=== PATIENT | male | born 1950 | race Caucasian/White ===

== ENCOUNTER 2023-02-25 09:35 | Emergency (ER) | payer BC, MEDICARE, OTHER ==
[~2023-02-25] VITALS: Ht 180.3 cm; Wt 72.0 kg
[~2023-02-25 09:35] MED LIST: NO HOME MEDS; OXYC-149 PO
[2023-02-25 09:46] VITALS: BP 152/105; PULSE 108; O2SAT 96
[2023-02-25] MEDS ORDERED: ketorolac trometh inj. 60 MG/2 ML VIAL IM ONE (11:10)
[2023-02-25] MEDS ORDERED: TRAM50TA2 PO (11:14)
[2023-02-25] MEDS ORDERED: IBUP-1986 PO (11:14)
[2023-02-25 11:21] VITALS: RESP 17
== END 2023-02-25 17:59 | disposition home or self-care (01) ==
LOC: ER 09:35
DX: S43.101A Unspecified dislocation of right acromioclavicular joint, initial encounter (principal); X58.XXXA Exposure to other specified factors, initial encounter; Y93.89 Activity, other specified; Y92.89 Other specified places as the place of occurrence of the external cause; Y99.8 Other external cause status
CPT/HCPCS: 73030; 96372; 99283; J1885; A4565

== ENCOUNTER 2023-12-10 23:10 | Inpatient (IN) | payer BC, OTHER ==
[~2023-12-10] VITALS: Ht 180.3 cm; Wt 85.0 kg
[~2023-12-10 23:10] MED LIST changes: +IBUP-1986 PO
[2023-12-10 23:52] LABS: BASOPHILS # (AUTO) 0.1 X10'3 (0-0.2); BASOPHILS % (AUTO) 1.3 % (0-1); EOSINOPHILS # (AUTO) 0.2 X10'3 (0-0.9); EOSINOPHILS % (AUTO) 3.3 % (0-6); HEMATOCRIT 42.5 % (42.0-52.0); HEMOGLOBIN 14.5 g/dl (14.0-17.9); LYMPHOCYTES # (AUTO) 1.8 X10'3 (1.1-4.8); LYMPHOCYTES % (AUTO) 26.5 % (21-51); MEAN CORPUSCULAR HEMOGLOBIN 29.7 PG (27.0-31.0); MEAN CORPUSCULAR HGB CONC 34.1 g/dL (33.0-36.5); MEAN CORPUSCULAR VOLUME 87.2 FL (78-98); MEAN PLATELET VOLUME 6.9 FL (7.4-10.4); MONOCYTES # (AUTO) 0.5 X10'3 (0-0.9); MONOCYTES % (AUTO) 7.3 % (2-12); NEUTROPHILS # (AUTO) 4.2 X10'3 (1.8-7.7); NEUTROPHILS % (AUTO) 61.6 % (42-75); PLATELET COUNT 281 X10'3 (140-440); RED BLOOD COUNT 4.88 X10'6 (4.70-6.10); RED CELL DISTRIBUTION WIDTH 14.7 % (11.5-14.5); WHITE BLOOD COUNT 6.8 X10'3 (4.5-11.0)
[2023-12-11] VITALS (13 sets, daily range): BP systolic 110–160; BP diastolic 69–95; PULSE 88–96; RESP 14–18; TEMP 98.1; O2SAT 93–99
[2023-12-11 00:06] LABS: ALBUMIN 3.5 G/DL (3.4-5.0); ANION GAP 10 (8-16); BLOOD UREA NITROGEN 17 MG/DL (7-18); BUN/CREATININE RATIO 15.2 (10.0-20.0); CALCIUM 8.6 MG/DL (8.5-10.1); CHLORIDE 105 MMOL/L (99-107); CREATININE 1.12 MG/DL (0.60-1.10); GLUCOSE 102 MG/DL (70-104); POTASSIUM 3.8 MMOL/L (3.5-5.1); PRO BRAIN NATRIURETIC PEPTIDE 1729 PG/ML (0-125); SODIUM 142 MMOL/L (135-145); TOTAL CARBON DIOXIDE 26.8 MMOL/L (24-32); eGFR 65 ML/MIN
[2023-12-11] MEDS: aspirin 325mg tablet PO ONE (01:17)
[2023-12-11] MEDS: heparin 10,000 units/1 ML INJ IV ONE (01:20)
[2023-12-11] MEDS: heparin 25,000 UNIT/250ml bag 250 ML IV PRN (01:21)
[2023-12-11] MEDS: MESSAGE TO NURSING IV ONE ×2 (01:21→09:01)
[2023-12-11 01:41] LABS: APTT 26 SECONDS (22-32); PROTHROMBIN TIME 10.8 SECONDS (9.0-12.0)
[2023-12-11] MEDS ORDERED: magnesium 4gm in 100ml NS 100 ML IV PRN (01:45)
[2023-12-11] MEDS ORDERED: potassium Cl 40MEQ/1/2NS 520ml 520 ML IV PRN (01:45)
[2023-12-11] MEDS ORDERED: acetaminophen 325mg tablet PO PRN (01:45)
[2023-12-11] MEDS ORDERED: morphine 2 MG/ML inj. syringe IV PRN ×2 (01:45)
[2023-12-11] MEDS ORDERED: ondansetron/PF 4mg/2ml inj IV PRN (01:45)
[2023-12-11] MEDS ORDERED: potassium Cl 20 mEq SR tablet PO PRN ×2 (01:45)
[2023-12-11] MEDS ORDERED: magnesium 2GM in 50ml NS 50 ML IV PRN (01:45)
[2023-12-11] MEDS ORDERED: mag hydrox/Alum hydrox/simeth 30ml oral suspension PO PRN (01:45)
[2023-12-11] MEDS ORDERED: magnesium Cl slow-release 64mg tablet PO PRN (01:45)
[2023-12-11] MEDS: lisinopril 10 MG tablet PO ONE (03:34)
[2023-12-11] MEDS: pantoprazole 40mg Tablet.DR PO SCH (07:30)
[2023-12-11 07:59] LABS: HEMOGLOBIN A1C 6.2 % (4.5-6.2)
[2023-12-11] MEDS: docusate sod 100mg capsule PO SCH (08:00)
[2023-12-11] MEDS: K and/or MAG REPLACEMENT MC SCH (08:00)
[2023-12-11] MEDS ORDERED: atorvastatin 20mg tablet PO SCH ×2 (08:00)
[2023-12-11] MEDS: aspirin 81mg, enteric-coated 1 TAB TABLET.DR PO SCH (08:40)
[2023-12-11] MEDS: atorvastatin 20mg tablet PO SCH (08:40)
[2023-12-11] MEDS: lisinopril 10 MG tablet PO SCH (08:41)
[2023-12-11] MEDS: heparin 10,000 units/1 ML INJ IV PRN (08:43)
[2023-12-11] MEDS ORDERED: metoprolol tartrate 1mg/ml inj IV PRN (10:40)
[2023-12-11] MEDS ORDERED: nitroGLYCERIN 0.4mg SUBLingual tab SL PRN (10:40)
[2023-12-11 10:55] LABS: CHOL/HDL RATIO 4.7 (0.00-4.99); CHOLESTEROL 228 MG/DL (0-200); HDL CHOLESTEROL 49 MG/DL (35-60); LDL CHOLESTEROL 162 MG/DL (50-100); POTASSIUM 3.8 MMOL/L (3.5-5.1); THYROID STIMULATING HORMONE 1.88 ulU/ml (0.34-4.50); TRIGLYCERIDES 139 MG/DL (20-135)
[2023-12-11] MEDS: regadenoson 0.4mg/5ml syringe IV PRN (13:25)
[2023-12-11] MEDS: aminophylline 250mg/10ml inj. IV PRN (13:49)
[2023-12-11] MEDS ORDERED: SACU1TAB PO (16:48)
[2023-12-11] MEDS ORDERED: EMPA10TA PO (16:48)
[2023-12-11] MEDS ORDERED: ASPI-1071 PO (16:48)
[2023-12-11] MEDS ORDERED: METO-395 PO (16:48)
[2023-12-11] MEDS ORDERED: NITR0.4T51 SL (16:48)
[2023-12-11] MEDS ORDERED: ATOR20TA66 PO (16:48)
[2023-12-11] MEDS: metoprolol succinate 25mg (24-HOUR) SR. Tablet PO SCH (16:55)
[2023-12-12] MEDS ORDERED: EMPAGLIFLOZIN 10 MG TABLET PO SCH (08:00)
[2023-12-12] MEDS ORDERED: atorvastatin 20mg tablet PO SCH (08:00)
[2023-12-12] MEDS ORDERED: sacubitril/valsartan 24mg-26mg tablet PO SCH (20:00)
== END 2023-12-11 18:23 | DRG 280 ==
LOC: EEVIPCON 23:10 → ER 23:10 → ED HOLD 12-11 01:45
PROVIDERS: ADMIT Surgery; ATTEND Internal Medicine
PROC: 4A02XM4 Measurement of Cardiac Total Activity, External Approach (ICD-10-PCS; principal; 2023-12-11)
PROC: 3E033HZ Introduction of Radioactive Substance into Peripheral Vein, Percutaneous Approach (ICD-10-PCS; 2023-12-11)
DX: I21.4 Non-ST elevation (NSTEMI) myocardial infarction (principal); N17.0 Acute kidney failure with tubular necrosis; I50.20 Unspecified systolic (congestive) heart failure; I25.10 Atherosclerotic heart disease of native coronary artery without angina pectoris; E78.5 Hyperlipidemia, unspecified; F17.210 Nicotine dependence, cigarettes, uncomplicated; K21.9 Gastro-esophageal reflux disease without esophagitis; Z90.49 Acquired absence of other specified parts of digestive tract; Z82.49 Family history of ischemic heart disease and other diseases of the circulatory system; Z71.6 Tobacco abuse counseling
CPT/HCPCS: 36415; 71045; 78452; 80048; 80061; 83036; 83735; 83880; 84132; 84443; 84484; 85025; 85610; 85730; 93005; 93017; 93306; 99291; A9500; G0378; J0280; J1644; J2785

== ENCOUNTER 2024-01-19 20:05 | Emergency (ER) | payer OTHER, MEDICAID ==
[~2024-01-19] VITALS: Ht 177.8 cm; Wt 75.0 kg
[~2024-01-19 20:05] MED LIST changes: +ASPI-1071 PO; +ATOR20TA66 PO; +EMPA10TA PO; -IBUP-1986 PO; +METO-395 PO; +NITR0.4T51 SL; -OXYC-149 PO; +SACU1TAB PO
[2024-01-19 20:23] LABS: BASOPHILS # (AUTO) 0.1 X10'3 (0-0.2); EOSINOPHILS # (AUTO) 0.3 X10'3 (0-0.9); EOSINOPHILS % (AUTO) 4.3 % (0-6); HEMATOCRIT 41.5 % (42.0-52.0); LYMPHOCYTES # (AUTO) 1.6 X10'3 (1.1-4.8); LYMPHOCYTES % (AUTO) 24.7 % (21-51); MEAN CORPUSCULAR HEMOGLOBIN 29.6 PG (27.0-31.0); MEAN CORPUSCULAR HGB CONC 33.8 g/dL (33.0-36.5); MEAN CORPUSCULAR VOLUME 87.5 FL (78-98); MEAN PLATELET VOLUME 7.2 FL (7.4-10.4); MONOCYTES # (AUTO) 0.5 X10'3 (0-0.9); MONOCYTES % (AUTO) 7.8 % (2-12); NEUTROPHILS # (AUTO) 3.9 X10'3 (1.8-7.7); NEUTROPHILS % (AUTO) 62.2 % (42-75); PLATELET COUNT 226 X10'3 (140-440); RED BLOOD COUNT 4.74 X10'6 (4.70-6.10); RED CELL DISTRIBUTION WIDTH 14.2 % (11.5-14.5); WHITE BLOOD COUNT 6.3 X10'3 (4.5-11.0)
[2024-01-19 20:42] LABS: ALBUMIN 3.4 G/DL (3.4-5.0); ANION GAP 4 (8-16); BLOOD UREA NITROGEN 18 MG/DL (7-18); BUN/CREATININE RATIO 17.1 (10.0-20.0); CALCIUM 8.9 MG/DL (8.5-10.1); CHLORIDE 107 MMOL/L (99-107); CREATININE 1.05 MG/DL (0.60-1.10); GLUCOSE 167 MG/DL (70-104); POTASSIUM 3.9 MMOL/L (3.5-5.1); PRO BRAIN NATRIURETIC PEPTIDE 178 PG/ML (0-125); SODIUM 142 MMOL/L (135-145); TOTAL CARBON DIOXIDE 31.2 MMOL/L (24-32); eCRCL 66 ML/MIN; eGFR 69 ML/MIN
[2024-01-19 22:55] VITALS: BP 153/74; PULSE 78; RESP 14; TEMP 98.1; O2SAT 100
== END 2024-01-19 22:55 ==
LOC: ER 20:05 → EEVIPCON 20:05 → ER 22:55
DX: R07.89 Other chest pain (principal); Z79.82 Long term (current) use of aspirin; Z79.899 Other long term (current) drug therapy
CPT/HCPCS: 36415; 71045; 80048; 83880; 84484; 85025; 93005; 99285

== ENCOUNTER 2024-03-23 13:17 | Emergency (ER) | payer MEDICAID, OTHER ==
[2024-03-23 13:43] LABS: BASOPHILS # (AUTO) 0.1 X10'3 (0-0.2); BASOPHILS % (AUTO) 1.4 % (0-1); EOSINOPHILS # (AUTO) 0.3 X10'3 (0-0.9); EOSINOPHILS % (AUTO) 4.4 % (0-6); HEMATOCRIT 39.8 % (42.0-52.0); HEMOGLOBIN 13.7 g/dl (14.0-17.9); LYMPHOCYTES # (AUTO) 1.4 X10'3 (1.1-4.8); LYMPHOCYTES % (AUTO) 23.9 % (21-51); MEAN CORPUSCULAR HEMOGLOBIN 30.3 PG (27.0-31.0); MEAN CORPUSCULAR HGB CONC 34.3 g/dL (33.0-36.5); MEAN CORPUSCULAR VOLUME 88.5 FL (78-98); MEAN PLATELET VOLUME 7.3 FL (7.4-10.4); MONOCYTES # (AUTO) 0.3 X10'3 (0-0.9); MONOCYTES % (AUTO) 5.8 % (2-12); NEUTROPHILS # (AUTO) 3.8 X10'3 (1.8-7.7); NEUTROPHILS % (AUTO) 64.5 % (42-75); PLATELET COUNT 261 X10'3 (140-440); RED CELL DISTRIBUTION WIDTH 15.1 % (11.5-14.5); WHITE BLOOD COUNT 5.8 X10'3 (4.5-11.0)
[2024-03-23 13:58] LABS: D-DIMER 1.42 MG/L FEU (0-0.50)
--- NOTE | 2024-03-23 14:23 | NUR ---
patient sitting in gurney eyes closed rr even un labored no observable s/s of acute ACS at this time
[2024-03-23 14:44] LABS: ALBUMIN 3.7 G/DL (3.4-5.0); ANION GAP 8 (8-16); BLOOD UREA NITROGEN 22 MG/DL (7-18); BUN/CREATININE RATIO 19.3 (10.0-20.0); CALCIUM 9.3 MG/DL (8.5-10.1); CHLORIDE 106 MMOL/L (99-107); CREATININE 1.14 MG/DL (0.60-1.10); GLUCOSE 148 MG/DL (70-104); POTASSIUM 4.7 MMOL/L (3.5-5.1); PRO BRAIN NATRIURETIC PEPTIDE 79 PG/ML (0-125); SODIUM 141 MMOL/L (135-145); TOTAL CARBON DIOXIDE 27.3 MMOL/L (24-32); eGFR 63 ML/MIN
[2024-03-23] MEDS ORDERED: iohexol 350MG/ML 100ml bottle IV ONE (15:11)
[2024-03-23 16:39] VITALS: BP 127/75; PULSE 70; RESP 16; TEMP 98; O2SAT 98
== END 2024-03-23 16:41 | disposition home or self-care (01) ==
LOC: ER 13:18
DX: R07.2 Precordial pain (principal); R06.02 Shortness of breath; R11.0 Nausea; I25.2 Old myocardial infarction; Z79.899 Other long term (current) drug therapy; Z72.89 Other problems related to lifestyle; Z79.82 Long term (current) use of aspirin
CPT/HCPCS: 36415; 71045; 71275; 80048; 83880; 84145; 84484; 85025; 85379; 93005; 99285; Q9967